=== PATIENT | male | born 1950 | race Two or more races ===

== ENCOUNTER 2024-05-03 07:45 | Day surgery (SDC) | payer OTHER, SELFPAY ==
[2024-04-23 12:45] VITALS: BMI 35.1
[2024-04-23 13:16] LABS: % Basophils 0.4 % (0-2); % Eosinophils 3.2 % (0-6); % Lymphocytes 36.2 % (20.5-51.1); % Monocytes 9.1 % (1.7-9.3); % Neutrophils 51.1 % (42.2-75.2); Absolute Eosinophils 0.2 10^3/uL (0-0.7); Absolute Lymphocytes 1.8 10^3/uL (1.2-3.4); Absolute Monocytes 0.5 10^3/uL (0.1-0.6); Absolute Neutrophils 2.6 10^3/uL (1.4-6.5); Hematocrit 44.5 % (39.0-52.0); Hemoglobin 15.5 g/dL (13.0-18.0); Mean Corp Hgb Conc. 34.8 g/dL (33.0-37.0); Mean Corpuscular Hgb 31.8 pg (27.0-31.0); Mean Corpuscular Volume 91.4 fL (80.0-94.0); Nucleated Red Blood Cells % 0 % (-); Platelet Count 184 10^3/uL (130-400); Red Blood Cell Count 4.87 10^6/uL (4.70-6.10); Red Cell Dist. Width 12.7 % (11.5-14.5)
[2024-04-23 13:31] LABS: ALT (SGPT) 19 U/L (0-50); AST (SGOT) 24 U/L (17-59); Albumin 4.5 g/dl (3.5-5.0); Alkaline Phosphatase 64 U/L (38-126); Blood Urea Nitrogen 33 mg/dl (9-20); Calcium 9.5 mg/dl (8.4-10.2); Carbon Dioxide 25 mmol/L (22-30); Chloride 104 mmol/L (98-107); Estimated Creatinine Clearance 88 ml/min; Glucose 98 mg/dl (70-99); Magnesium 2.2 mg/dl (1.6-2.3); Potassium 4.4 mmol/L (3.5-5.1); Sodium 140 mmol/L (135-145); Total Bilirubin 1.2 mg/dl (0.2-1.3); Total Protein 6.9 g/dl (6.3-8.2); eGFR > 60.00
[2024-04-23 13:32] LABS: INR 1.21; PT 15.1 Sec (11.4-14.6)
[2024-05-03] VITALS (10 sets, daily range): BP systolic 107–147; BP diastolic 68–92; BMI 33.0
[2024-05-03 11:06] LABS: ACT-LR - POC 250 Seconds (116-155)
[2024-05-03 11:31] LABS: ACT-LR - POC 258 Seconds (116-155)
--- NOTE | 2024-05-03 11:43 | ITS.CL.ABL ---
Practicing Urologist - Ablation
Ablation
Procedure Report:
ELECTROPHYSIOLOGY ABLATION STUDY
�
DATE:: May 03, 2024�����������������������������REFERRING: Dr. Jeremías Winn
�
INDICATION: Paroxysmal supraventricular tachycardia in the form of atrial fibrillation.�
�
HISTORY: See H and P.��As above
�
ANTIARRHYTHMIC DRUG: Discussed class I class or antiarrhythmic drug patient opted for pulmonary vein isolation
�
PRE-PROCEDURE LULU: No atrial thrombus
�
PRESENTING RHYTHM: Sinus rhythm
�
'TIME-OUT':��called and confirmed.
�
SEDATION/ANESTHESIA:��provided via the anesthesia department using general anesthesia (LMA).
�
INTRAVENOUS/ARTERIAL ACCESS:
Right femoral venous -8Fr
Left femoral venous - 8 Fr, 6 Fr
[id number] suture to each of the pulmonary veins
Ultrasound guidance for bilateral femoral vein access was utilized by me to obtain access with demonstration of normal anatomy
CHADS-VASC Score:
�
HAS-Bled Score
�
PROCEDURE:
1.��A decapolar CS catheter was placed within the CS for mapping and pacing.��This was also used as the reference catheter for the 3-D map.
�
2. The intracardiac ultrasound catheter was positioned in the RA to identify the FO for targeting of transseptal puncture, assist��in identification of the pulmonary vein ostia, monitoring pre and post ablation pulmonary vein flow velocities,
monitoring for 'bubble' formation during RF application as a sign of thermal injury,��and to monitor for pericardial effusion during mapping and ablation procedure.���Left atrial size, LV ejection fraction, and pulmonary vein flows were monitored
pre and post ablation procedure. The other valves were inspected and found to be free of significant regurgitation or stenosis.
�
3.��Half of the calculated heparin bolus was administered prior to the first transeptal puncture.��Transseptal puncture was performed to diagnose RA and LA pressure so that safety of LA mapping and ablation could be further assessed, and to access
the left atrium and pulmonary veins for mapping and ablation.��This entailed advancing an 10 [place] steerable sheath with dilator into the superior vena cava and withdrawing both (monitoring intracardiac ultrasound, fluoroscopy and tip pressure)
with the tip oriented toward the atrial septum.��The fossa ovalis was engaged (indicated by sudden displacement of the sheath tip as well as tenting of the fossa seen on intracardiac ultrasound).��Left atrial access required a pass with the
B[place] needle extended.��Left atrial catheter position was confirmed by pressure monitoring (RA mean pressure 8 mm Hg and LA mean presure 14 mm Hg), LA saturation ( [ ] %),��as well as fluoroscopy.��The sheath was advanced over the dilator
and positioned in the left atrium.��Over a ProTrac wire we upgraded to the Tricia drive sheath�the remainder of the calculated heparin bolus was administered and heparin was
infused to maintain ACT at 300 -350 seconds throughout the case.
�
4.��RA pacing was performed via the proximal decapolar poles and LA pacing was performed via the distal decapolar poles.
�
5. A quadrapolar catheter was first positioned at the His position for His Bundle recording which was tagged via the 3-D Navex sytem, and then passed to the RVA for RV pacing and recording.
�
6. The multipolar catheter and the PFA catheter were placed in each of the LIPV, LSPV, RSPV and the RIPV.��The patient initiated atrial fibrillation from the roof just outside the left superior pulmonary vein activation mapping demonstrated
tachycardia coming from just outside the left superior pulmonary vein on the roof and posterior roof. The tach arrhythmia was activation mapped but degenerated into atrial fibrillation.
�
7.��Next, a 3-D map was created using Navex.���A 3-D reconstructed CT image was compared to the 3-D Navex map to assist in anatomic interpretation, mapping and ablation.��The CT image and the NavX image were fused.
�
8. A total of 51 lesions were given to the pulmonary veins and left atrial posterior wall. In the [place] and basket pose sequential lesions were given to the pulmonary veins and the posterior wall was addressed with the flower pose.
�
9. Normal sinus node and AV jerrell function were noted.
TOTAL FLOURO TIME: 12.7 minutes
�
TOTAL RF DURATION: 0 minutes
�
REVERSAL OF HEPARIN: 40 mg of protamine, slow IV administration
�
COMPLICATIONS:
None
Intracardiac US shows no pericardial effusion post ablation.
�
SUMMARY:��
Complex left atrial mapping and ablation.
Isolation of all 4 pulmonary veins and the left atrial posterior wall as above
�
RECOMMENDATIONS:
1. Consider same-day discharge protocol
2. Resume anticoagulation
3.� Out of bed in 4 hours
4.��3 months of uninterrupted oral anticoagulation
�
Copy to: Dr. Jeremías Winn
�
--- NOTE | 2024-05-03 16:30 | W.PN.UPDATE ---
Update Note
Progress Note Update
73 yo WM s/p PVI (same day). He denies cp, sob, juanita diet, voiding, amb wo dizziness, EKG SB 1deg AVB, b/l groins c/d/i soft. He will continue OAC Xarelto, dose at home at 6pm tonight. Activity restrictions reviewed. He will f/u EP [employer] in 3 mo and
continue cardiac care with Dr. Winn. He is for d/c home after 430pm.
SUMMARY:��
Complex left atrial mapping and ablation.
Isolation of all 4 pulmonary veins and the left atrial posterior wall as above
�
== END 2024-05-03 16:30 | disposition home or self-care (01) ==
LOC: CATH 07:45
PROVIDERS: ATTENDING PHYSICIAN Internal Medicine Cardiovascular Disease; FAMILY PHYSICIAN Internal Medicine
DX: I48.91 Unspecified atrial fibrillation (principal); I47.19 Other supraventricular tachycardia; Z79.01 Long term (current) use of anticoagulants; I51.7 Cardiomegaly; Z87.891 Personal history of nicotine dependence
CPT/HCPCS: C1732; C1894; C1730; C1759; 36415; 75572; 80053; 83735; 85025; 85347; 85610; 86850; 86900; 86901; 93005; 93656; C1733; C1766; C1892; Q9967